=== PATIENT | female | born 1950 ===

== ENCOUNTER 2017-09-03 06:17 | Emergency (ER) | payer OTHER ==
[2017-09-03] MEDS ORDERED: Sodium Chloride 0.9% 1,000 ML IV ONE (07:18)
--- NOTE | 2017-09-03 07:35 | C.PDOC ---
History Of Present Illness 67-year-old female w/o significant PMHx presents to the emergency department with complaints of subjective fever, malaise, bodyaches, dizziness, associated with sore throat, dry cough gradually developed for the past two days. Otherwise , pt denies high fever, severe headache, visual changes, focal deficits, neck pain, CP, SOB, dyspnea, No vomiting, headache, dizziness, drooling, dysphagia, dypsnea, SOB, wheezing, palpitation, abd. pain, V/D, UTI sx. Ambulate to ED for evaluation, not in any apparent distress. Time Seen by Provider: 09/03/17 07:09 Chief Complaint (Nursing): Flu-like Symptoms History Per: Patient History/Exam Limitations: no limitations Onset/Duration Of Symptoms: Days Current Symptoms Are (Timing): Still Present Past Medical History Reviewed: Historical Data, Nursing Documentation, Vital Signs Vital Signs: Last Vital Signs Temp 97.8 F 09/03/17 13:10 Pulse 58 L 09/03/17 13:10 Resp 18 09/03/17 13:10 BP 107/68 09/03/17 13:10 Pulse Ox 99 09/03/17 13:10 - Medical History PMH: HTN Surgical History: Cholecystectomy Family History: States: No Known Family Hx - Social History Hx Alcohol Use: No Hx Substance Use: No - Immunization History Hx Tetanus Toxoid Vaccination: Yes Hx Influenza Vaccination: Yes Hx Pneumococcal Vaccination: Yes Review Of Systems Constitutional: Positive for: Fever, Malaise ENT: Positive for: Throat Pain Cardiovascular: Negative for: Chest Pain Respiratory: Positive for: Cough. Negative for: Shortness of Breath, Sputum Gastrointestinal: Negative for: Vomiting Musculoskeletal: Negative for: Neck Pain, Back Pain Skin: Negative for: Rash Neurological: Negative for: Weakness Physical Exam - Physical Exam Appears: Well, Non-toxic, No Acute Distress Skin: Normal Color, Warm, Dry, No Rash Head: Normacephalic Eye(s): bilateral: PERRL Ear(s): Bilateral: Normal Nose: No Flaring, No Discharge Oral Mucosa: Moist, No Drooling Throat: No Erythema, No Drooling Neck: Normal ROM, Supple, Other ((-)meningeal sign) Cardiovascular: Rhythm Regular, No Murmur, No JVD, Other ((-) carotid bruits B/L ) Respiratory: No Decreased Breath Sounds, No Accessory Muscle Use, No Stridor, No Wheezing Gastrointestinal/Abdominal: Soft, No Tenderness, No Distention, No Guarding Back: No CVA Tenderness Extremity: Normal ROM, No Deformity, No Swelling Neurological/Psych: Oriented x3, Normal Speech, Normal Motor, Normal Sensation, Normal Reflexes ED Course And Treatment - Laboratory Results Result Diagrams: 09/03/17 09:18 09/03/17 09:18 Lab Interpretation: No Acute Changes ECG: Interpreted By Me, Viewed By Me Interpretation Of ECG: SR@58/min, LAD, T wave inversion in III, no acute ST-T changes. O2 Sat by Pulse Oximetry: 100 (RA) Pulse Ox Interpretation: Normal - Radiology CXR: Interpreted by Me, Viewed By Me, Read By Radiologist CXR Interpretation: Yes: No Acute Disease Progress Note: PT WAS OBS IN ED FOR 4 HOURS AND REPORTS MODERATE IMPORVEMNET IN SX. On re-evaluation, pt is afebrile, hemodynamicaly stable. Non-toxic. Tolerate Po well in ED. PulsEOx 100% RA. ENT: no acute findings. neck: Supple , (-) meningeal signs. Lungs: CTA B/L, BS equal B/L. Abd: benign, (-) guarding , (-) rebound. Back: (-) CVa tenderness. CXR review, normal study. Blood work review and appears without acute abnoramlities, no leukocytosis. UA (+) nitrate. Ucx- pending. Pt received Rocephin. results review and discussed with patient. Pt has clinical findings c/w UTI. Pt advised on course of ds. Ref. to f/u with PMD in 2 -3 days for re-eavl. return if any new changes. Disposition Counseled Patient/Family Regarding: Diagnosis, Need For Followup, Rx Given - Disposition Referrals: Reginald Dubose MD [Non-Staff] - Disposition: HOME/ ROUTINE Disposition Time: 10:27 Condition: STABLE Additional Instructions: ENCOURAGE FLUIDS CRANBERRY SUPPLEMENT TAKE MEDICATION PRESCRIBED FOLLOW UP WITH PMD IN2 -3 DAYS FOR RE-EVALUATION. RETURN TO ED IF ANY WORSENING OR NEW CHANGES. Prescriptions: Cefpodoxime [Vantin] 40 mg PO BID #28 tab Cranberry Fruit Extract [Cranberry] 500 mg PO BID #30 capsule Instructions: Urinary Tract Infection in Women (ED) Forms: [facility] (Yakut) Print Language: ENGLISH - Clinical Impression Clinical Impression: UTI (urinary tract infection) - Scribe Statement The provider has reviewed the documentation as recorded by the Scribe (Tai Farah) All medical record entries made by the Scribe were at my direction and personally dictated by me. I have reviewed the chart and agree that the record accurately reflects my personal performance of the history, physical exam, medical decision making, and the department course for this patient. I have also personally directed, reviewed, and agree with the discharge instructions and disposition.
[2017-09-03 08:28] VITALS: RESP 18; TEMP 97.8
[2017-09-03] MEDS ORDERED: Sodium Chloride 0.9% 1,000 ML ONE (09:21)
[2017-09-03 09:23] LABS: BASO % 0.5 % (0.0-2.0); EOS # 0.1 K/uL (0.0-0.7); EOS % 2.3 % (0.0-4.0); HEMOGLOBIN 13.2 g/dL (11.0-16.0); LYMPH # 1.4 K/uL (1.0-4.3); MEAN CELL VOLUME 88.4 fL (81.0-99.0); MEAN CORPUSCULAR HEMOGLOBIN 29.4 pg (27.0-31.0); MEAN CORPUSCULAR HGB CONC 33.2 g/dL (33.0-37.0); MONO # 0.4 K/uL (0.0-0.8); MONO % 7.7 % (0.0-10.0); NEUT # 3.2 K/uL (1.8-7.0); NEUT % 62.5 % (50.0-75.0); NRBC % 0.1 % (0.0-2.0); RBC 4.49 Mil/uL (3.80-5.20); RED CELL DISTRIBUTION WIDTH 14.9 % (11.5-14.5); WHITE BLOOD COUNT 5.1 K/uL (4.8-10.8)
[2017-09-03 09:35] LABS: BLOOD UREA NITROGEN 17 mg/dL (7-17); CALCIUM 8.9 mg/dl (8.6-10.4); GFR AFRICAN-AMERICAN > 60; GFR NON-AFRICAN AMERICAN > 60
[2017-09-03 10:01] LABS: SQUAMOUS EPITHIAL 7 /hpf (0-5); URINE BACTERIA OCC (<OCC); URINE BILIRUBIN NEGATIVE (NEGATIVE); URINE BLOOD NEGATIVE (NEGATIVE); URINE CLARITY Hazy (Clear); URINE COLOR Yellow (YELLOW); URINE GLUCOSE (UA) NORMAL (Normal); URINE LEUKOCYTE ESTERASE 2+ Leu/uL (Negative); URINE NITRATE POSITIVE (NEGATIVE); URINE PROTEIN NEGATIVE (NEGATIVE); URINE UROBILINOGEN NORMAL mg/dL (0.2-1.0)
--- NOTE | 2017-09-03 10:31 | RAD ---
HISTORY: SOB COMPARISON: No prior. TECHNIQUE: Chest PA and lateral FINDINGS: LUNGS: No active pulmonary disease. PLEURA: No significant pleural effusion identified. No pneumothorax apparent. CARDIOVASCULAR: Heart size within range of normal. Aorta is slightly ectatic and uncoiled. OSSEOUS STRUCTURES: Mild multilevel degenerative spondylosis of the thoracic spine VISUALIZED UPPER ABDOMEN: Metallic clips in the right upper quadrant gliotic consistent prior cholecystectomy. OTHER FINDINGS: None. IMPRESSION: No active disease.
[2017-09-03 13:10] VITALS: BP 107/68; PULSE 58
[2017-09-03 13:50] VITALS: O2SAT 100
== END 2017-09-03 13:35 | disposition home or self-care (01) ==
LOC: C.ER 06:17
DX: N39.0 Urinary tract infection, site not specified (principal); I10 Essential (primary) hypertension
CPT/HCPCS: 71046; 80048; 81001; 85025; 87086; 87804; 96361; 96365; 96375; 99284; J0696; J1885; J2405; J7040

== ENCOUNTER 2018-11-25 14:10 | Outpatient (CLI) | payer OTHER | END 2018-11-25 14:11 | disposition home or self-care (01) | LOC: C.DEXAIC 14:11 | DX: Z13.820 Encounter for screening for osteoporosis (principal); E04.1 Nontoxic single thyroid nodule ==

== ENCOUNTER 2018-11-26 13:51 | Emergency (ER) | payer OTHER ==
[2018-11-26 13:51] VITALS: BMI 34.0
[2018-11-26 14:04] VITALS: RESP 16
--- NOTE | 2018-11-26 14:30 | C.PDOC ---
History Of Present Illness 68 year old female presents to ED s/p fall 2 days ago. Patient tripped and fell landing on both of her knees. Police at the scene made a report and because she was ambulatory and felt fine she was not sent to the ED. Patient states that the pain progressively worsened. Patient complains of bilateral knee pain, lower back pain, and abdominal pain. Patient denies weakness, numbness, loss of consciousness, head trauma, and headache. - HPI Time Seen by Provider: 11/26/18 14:02 Chief Complaint (Nursing): Trauma History Per: Patient History/Exam Limitations: no limitations Onset/Duration Of Symptoms: Days (2) Injury Occurred (Timing): Days Ago: (2) Location Of Injury: Right: Knee (abrasion), Left: Knee - Fall Fall:Prior To Injury: Tripped Past Medical History Reviewed: Historical Data, Nursing Documentation, Vital Signs Vital Signs: Last Vital Signs Temp Pulse 81 11/26/18 14:02 Resp 16 11/26/18 14:02 BP 145/86 11/26/18 14:02 Pulse Ox 99 11/26/18 14:02 Primary Care Provider: Celestino Solis Surg - Medical History PMH: HTN Surgical History: Cholecystectomy Family History: States: Unknown Family Hx - Social History Hx Alcohol Use: No Hx Substance Use: No - Immunization History Hx Tetanus Toxoid Vaccination: Yes Hx Influenza Vaccination: Yes Hx Pneumococcal Vaccination: Yes Review Of Systems Except As Marked, All Systems Reviewed And Found Negative. Constitutional: Negative for: Fever, Chills, Weakness Gastrointestinal: Positive for: Abdominal Pain Musculoskeletal: Positive for: Back Pain (lower back pain), Leg Pain (bilateral knee pain) Neurological: Negative for: Weakness, Numbness, Headache, Other (loss of consciousness) Physical Exam - Physical Exam Appears: Well, Non-toxic, No Acute Distress Skin: Normal Color, Warm, Dry, No Ecchymosis, Other (abrasions to the bilateral knees) Head: Atraumatic, Normacephalic, No Abrasion Eye(s): bilateral: Normal Inspection, PERRL, EOMI Ear(s): Bilateral: Normal Nose: Normal Oral Mucosa: Moist Throat: No Erythema, No Exudate Neck: Normal ROM, No Paracervical Tenderness, Supple Chest: Symmetrical, No Deformity, No Tenderness Cardiovascular: Rhythm Regular, No Friction Rub, No Murmur Respiratory: No Accessory Muscle Use, No Rales, No Rhonchi, No Wheezing Gastrointestinal/Abdominal: Bowel Sounds (active), Soft, No Tenderness, No Distention, No Guarding, No Rebound Back: Normal Inspection, No CVA Tenderness, No Vertebral Tenderness, No Paraspinal Tenderness Extremity: Normal ROM, No Tenderness, No Calf Tenderness, Capillary Refill (<2 seconds), No Swelling Pulses: Left Dorsalis Pedis: Normal, Right Dorsalis Pedis: Normal Neurological/Psych: Oriented x3, Normal Speech, Normal Cognition, Normal Motor Gait: Steady ED Course And Treatment O2 Sat by Pulse Oximetry: 99 (in RA) Pulse Ox Interpretation: Normal - Other Rad Bilateral Knee X-ray X-Ray: Interpreted by Me, Viewed By Me Interpretation: IMPRESSION: Mild osteoarthritis. Sub centimeter sclerotic border bony lesion at the proximal left tibia likely benign. Abdomen w/ chest X-ray X-Ray: Interpreted by Me, Viewed By Me Interpretation: IMPRESSION: No evidence of bowel obstruction. Small opacities at the lower lobes likely atelectasis. Medical Decision Making Medical Decision Making: Initial Plan: Abdomen w/ Chest X-ray Bilateral Knee X-ray Toradol IM On re-exam the patient reports improvement of symptoms. Lungs are CTA, heart is RRR, abdomen is soft, non-tender and the patient is tolerating PO well. Patient is ambulatory in the ED with steady gait. Pt was instructed to follow up with the medical doctor within 1-2 days. Return if worsened. Disposition - Disposition Referrals: Lj Villa MD [Non-Staff] - Disposition: HOME/ ROUTINE Disposition Time: 16:51 Condition: GOOD Additional Instructions: Follow up with the medical doctor within 1-2 days. Return if worsened. 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 (Crystal Vargas) - Scribe Statement The provider has reviewed the documentation as recorded by the Scribe (Crystal Vargas) All medical record entries made by the Scribe were at my direction and personally dictated by me. I have reviewed the chart and agree that the record accurately reflects my personal performance of the history, physical exam, medical decision making, and the department course for this patient. I have also personally directed, reviewed, and agree with the discharge instructions and disposition.
--- NOTE | 2018-11-26 15:44 | RAD ---
Date of service: 11/26/2018 PROCEDURE: Bilateral Knee Radiographs. HISTORY: knee pain, fall 2 days ago COMPARISON: None. TECHNIQUE: 4 views obtained. FINDINGS: BONES: Right Knee: Normal. No fracture. Left Knee: No evidence of acute fracture. Round sclerotic border bony lesion noted at the left tibial plateau to likely benign. JOINTS: Right Knee: Mild osteoarthritis. Left knee: Mild osteoarthritis. SOFT TISSUES: Right Knee: Normal. Left Knee: Normal. JOINT EFFUSION: Right Knee: None. Left Knee: None. OTHER FINDINGS: None. IMPRESSION: Mild osteoarthritis. Sub centimeter sclerotic border bony lesion at the proximal left tibia likely benign.
--- NOTE | 2018-11-26 15:46 | RAD ---
Date of service: 11/26/2018 HISTORY: abd pain, chest COMPARISON: Comparison is made with 09/03/2017 TECHNIQUE: 1 view obtained. FINDINGS: BOWEL: Normal. No obstruction. No free air. BONES: Normal. OTHER FINDINGS: Small opacities at the lung bases and lower lobes likely atelectasis or scar tissue. IMPRESSION: No evidence of bowel obstruction. Small opacities at the lower lobes likely atelectasis.
[2018-11-26 16:30] VITALS: BP 138/78; PULSE 78; TEMP 98.5
[2018-11-26 16:53] VITALS: O2SAT 99
== END 2018-11-26 17:09 | disposition home or self-care (01) ==
LOC: C.ER 13:51
DX: S80.02XA Contusion of left knee, initial encounter (principal); S80.01XA Contusion of right knee, initial encounter; W01.0XXA Fall on same level from slipping, tripping and stumbling without subsequent striking against object, initial encounter; S30.0XXA Contusion of lower back and pelvis, initial encounter
CPT/HCPCS: 73562; 74022; 96372; 99284; J1885

== ENCOUNTER 2018-12-11 13:15 | Emergency (ER) | payer OTHER ==
[2018-12-11 13:16] VITALS: BMI 34.0
--- NOTE | 2018-12-11 14:09 | C.PDOC ---
History Of Present Illness Patient is a 68 year old female, with a PMHx of chronic ear problems and right ear TM perforation, who presents to the ED for evaluation of one week history of bilateral ear itchiness and discharge. Patient states that she has been cleaning her ears with water and lotion and believes a piece of a Q-tip may be stuck in her left ear. In addition, patient is also stating she thinks "something is in her head" because she has been having mild, aching, intermittent headaches. She states that she has had it for months, but forgets to bring it up to her doctor when she visits and is requesting brain tests. Patient denies any lip or tongue swelling, cough, sore throat, congestion, fever, visual changes, neck pain, neck stiffness, head injury. Denies weakness, photophobia, numbness or tingling. 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 Time Seen by Provider: 12/11/18 13:32 Chief Complaint (Nursing): ENT Problem History Per: Patient History/Exam Limitations: None Onset/Duration Of Symptoms: Days (one week) Current Symptoms Are (Timing): Still Present Quality (Ear): Discharge, Foreign Body, Other (itchy) Past Medical History Reviewed: Historical Data, Nursing Documentation, Vital Signs Vital Signs: Last Vital Signs Temp 98.4 F 12/11/18 13:21 Pulse 86 12/11/18 13:21 Resp 20 12/11/18 13:21 BP 140/88 12/11/18 13:21 Pulse Ox 95 12/11/18 13:21 Primary Care Provider: FAMILY PROVIDER,NO - Medical History PMH: HTN Surgical History: Cholecystectomy Family History: States: Unknown Family Hx - Social History Hx Alcohol Use: No Hx Substance Use: No - Immunization History Hx Tetanus Toxoid Vaccination: Yes Hx Influenza Vaccination: Yes Hx Pneumococcal Vaccination: Yes Review Of Systems Except As Marked, All Systems Reviewed And Found Negative. Constitutional: Negative for: Fever Eyes: Negative for: Vision Change ENT: Positive for: Ear Discharge (with itchiness), Other (no lip or tongue swelling). Negative for: Nose Congestion, Throat Pain, Throat Swelling Respiratory: Negative for: Cough Musculoskeletal: Negative for: Neck Pain Neurological: Positive for: Headache Physical Exam - Physical Exam Appears: Well, Non-toxic, No Acute Distress Skin: Normal Color, Warm, Dry Head: Atraumatic, Normacephalic, No Tenderness Eye(s): bilateral: Normal Inspection Ear(s): Bilateral: Other (Bilateral external ear canals are erythematous with excoriated anderson crusted exudate. Right TM not intact with scarring. Left canal with white foreign body that was removed with alligator forceps. Left TM normal after removal of FB. ) Nose: Normal, No Discharge Oral Mucosa: Moist Tongue: Normal Appearing Lips: Normal Appearing Throat: Normal, No Erythema, No Exudate, No Mass Neck: Normal ROM, No Midline Cervical Tenderness, No Paracervical Tenderness, Supple Lymphatic: No Adenopathy Chest: Symmetrical Cardiovascular: Rhythm Regular Respiratory: Normal Breath Sounds Extremity: Normal ROM, No Tenderness Neurological/Psych: Oriented x3, Normal Speech, Normal Cognition, Normal Cranial Nerves ED Course And Treatment O2 Sat by Pulse Oximetry: 95 (on RA) Pulse Ox Interpretation: Normal - CT Scan/US CT BRAIN W/O CONTRAST Other Rad Studies (CT/US): Read By Radiologist, Radiology Report Reviewed CT/US Interpretation: Accession No. : [id number]. Patient Name / ID : BELLA ESCALANTE / [id number]. Exam Date : 12/11/2018 14:12:14 ( Approved ). Study Comment : Sex / Age : F / 68Y. Creator : Emelia Reddy MD. Dictator : Emelia Reddy MD. Apparel Trimmings Sales Representative : Focusing Machine Operator : Emelia Reddy MD. Approver2 : Report Date : 12/11/2018 14:23:01. My Comment : . Date of service: 12/11/2018. PROCEDURE: CT HEAD WITHOUT CONTRAST. HISTORY: headache. COMPARISON: None available. TECHNIQUE: Axial computed tomography images were obtained through the head/brain without intravenous contrast. Radiation dose: Total exam DLP = 1083.89 mGy-cm. This CT exam was performed using one or more of the following dose reduction techniques: Automated exposure control, adjustment of the mA and/or kV according to patient size, and/or use of iterative reconstruction technique. FINDINGS: HEMORRHAGE: No intracranial hemorrhage. BRAIN: No mass effect or edema. The orr-white matter differentiation appears intact. Please note that MRI with diffusion imaging is more sensitive in the detection of acute ischemic event. VENTRICLES: No hydrocephalus. CALVARIUM: Unremarkable. PARANASAL SINUSES: Unremarkable as visualized. No significant inflammatory changes. MASTOID AIR CELLS: Small fluid within bilateral mastoid air cells. OTHER FINDINGS: None. IMPRESSION: No acute intracranial pathology identified. Small fluid within bilateral mastoid air cells; correlate clinically for mastoiditis. Medical Decision Making Medical Decision Making: Plan: CAT Head 1440 12/11/18 CT head reviewed. No clinical findings suggestive of mastoiditis. No erythema or tenderness to the mastoids. No fevers. 12/11/18 1456 Patient is well appearing, nontoxic. States has chronic ear problems. Patient has itchiness and discharge to bilateral ears and concern for FB to the left ear. FB removed with alligator forceps. Will treat for dermatitis to ear as well as otitis externa. Has chronic rupture of the right TM. CT done at request of patient due to headaches for a long period of time. No neuro deficits on exam. No mastoid tenderness, fever or erythema on exam to suggest mastoiditis. Disposition Counseled Patient/Family Regarding: Studies Performed, Diagnosis, Need For Followup, Rx Given - Disposition Referrals: FAMILY PROVIDER,NO [Family Provider] - Jeffrey Nguyễn MD [Staff Provider] - Disposition: HOME/ ROUTINE Disposition Time: 14:59 Condition: GOOD Additional Instructions: Follow-up with your doctor and an ENT. Return if symptoms worsen or persist. 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 - Scribe Statement The provider has reviewed the documentation as recorded by the Anthony Merrill All medical record entries made by the Dadaibe were at my direction and personally dictated by me. I have reviewed the chart and agree that the record accurately reflects my personal performance of the history, physical exam, medical decision making, and the department course for this patient. I have also personally directed, reviewed, and agree with the discharge instructions and disposition.
--- NOTE | 2018-12-11 14:26 | CT ---
Date of service: 12/11/2018 PROCEDURE: CT HEAD WITHOUT CONTRAST. HISTORY: headache COMPARISON: None available. TECHNIQUE: Axial computed tomography images were obtained through the head/brain without intravenous contrast. Radiation dose: Total exam DLP = 1083.89 mGy-cm. This CT exam was performed using one or more of the following dose reduction techniques: Automated exposure control, adjustment of the mA and/or kV according to patient size, and/or use of iterative reconstruction technique. FINDINGS: HEMORRHAGE: No intracranial hemorrhage. BRAIN: No mass effect or edema. The orr-white matter differentiation appears intact. Please note that MRI with diffusion imaging is more sensitive in the detection of acute ischemic event. VENTRICLES: No hydrocephalus. CALVARIUM: Unremarkable. PARANASAL SINUSES: Unremarkable as visualized. No significant inflammatory changes. MASTOID AIR CELLS: Small fluid within bilateral mastoid air cells. OTHER FINDINGS: None. IMPRESSION: No acute intracranial pathology identified. Small fluid within bilateral mastoid air cells; correlate clinically for mastoiditis.
[2018-12-11 14:52] VITALS: BP 109/74; PULSE 75; RESP 18; TEMP 98.7
[2018-12-11 14:59] VITALS: O2SAT 95
== END 2018-12-11 15:24 | disposition home or self-care (01) ==
LOC: C.ER 13:15
DX: T16.2XXA Foreign body in left ear, initial encounter (principal); X58.XXXA Exposure to other specified factors, initial encounter; H60.90 Unspecified otitis externa, unspecified ear; I10 Essential (primary) hypertension